=== PATIENT | male | born 1980 | race African-American/Black ===

== ENCOUNTER 2016-12-07 21:15 | Emergency (ER) | payer SELFPAY ==
[~2016-12-07] VITALS: Ht 182.9 cm; Wt 75.0 kg
[~2016-12-07 21:15] MED LIST: LORT5TAB PO; Z.0.NO CURRENT MEDS
[2016-12-07 21:17] VITALS: BP 126/84; PULSE 88; RESP 16; TEMP 98.6; O2SAT 99
--- NOTE | 2016-12-07 21:24 | PD ---
HPI Chief Complaint: ENT Complaint Time Seen by Provider: 21:23 Travel History International Travel<30 days: No Contact w/Intl Traveler<30days: No Traveled to known affect area: No History of Present Illness HPI 46-year-old male presents to emergency department for evaluation of painful left ear with associated edema. Patient states he noticed this this morning but he has had ear pain for the last few days. Denies any fever or chills. No injury. States his ear hearing is muffled in the left ear. States the pain is causing his migraines to exacerbate. He has no other symptoms to report. PFSH Past Medical History Medical History: Denies Significant Hx Past Surgical History Tonsillectomy: Yes Social History Alcohol Use: No Tobacco Use: Yes Substance Use: No Allergies-Medications (Allergen,Severity, Reaction): Coded Allergies: No Known Allergies (Verified , 12/07/16) Reported Meds & Prescriptions Reported Meds & Active Scripts Active Augmentin (Amoxicillin-Clavulanate) 875-125 Mg Tab 1 Tab PO BID 10 Days Ibuprofen 800 Mg Tab 800 Mg PO Q8H PRN Lortab 5/500 (Acetaminophen/Hydrocodone Bitart) 5 Mg/500 Mg Tab 1 Tab PO Q6HPRN Review of Systems Except as stated in HPI: all other systems reviewed are Neg Physical Exam Narrative GENERAL: Well-nourished, well-developed male patient in no acute distress SKIN: Focused skin assessment warm/dry. HEAD: Normocephalic. No mastoid tenderness or erythema EARS: Bilateral pinnae and right external canals appear within normal limits. I am unable to visualize left tympanic membrane due to significant edema of the external canal as well as associated purulent drainage. Right tympanic membranes without erythema, dullness or perforation. EYES: No scleral icterus. No injection or drainage. NECK: Supple, trachea midline. No JVD or lymphadenopathy. CARDIOVASCULAR: Regular rate and rhythm without murmurs, gallops, or rubs. RESPIRATORY: Breath sounds equal bilaterally. No accessory muscle use. Data Data Last Documented VS Vital Signs Date Time Temp Pulse Resp B/P (MAP) Pulse Ox O2 Delivery O2 Flow Rate FiO2 12/07/16 22:02 12/07/16 21:17 98.6 88 16 99 Room Air Orders Orders Ketorolac Inj (Toradol Inj) (12/07/16 21:30) Amoxicil-Clavulanate (Augmentin) (12/07/16 21:30) [facility] Medical Decision Making Medical Screen Exam Complete: Yes Emergency Medical Condition: Yes Medical Record Reviewed: Yes Differential Diagnosis Otitis externa versus otitis media versus cystic lesion versus abscess Narrative Course 46-year-old male presents to emergency department for evaluation left ear pain. I'm unable to visualize the tympanic membrane of the left ear due to significant edema in the canal. Patient will be started on oral antibiotics as well as drops. He is provided his first dose here. He is encouraged to follow- up with a primary care provider and return immediately with any acute worsening of symptoms. Diagnosis Primary Impression: Otitis externa of left ear Qualified Codes: H60.312 - Diffuse otitis externa, left ear Referrals: Primary Care Physician Patient Instructions: General Instructions, Otitis Externa (ED) Additional Instructions: Follow-up with a primary care provider Return immediately to the emergency department with any acute worsening of symptoms Med/Other Pt SpecificInfo: Prescription(s) given Scripts Amoxicillin-Clavulanate (Augmentin) 875-125 Mg Tab 1 TAB PO BID for Infection for 10 Days, #10 TAB 0 Refills Prov: Lizzette Chacon 12/07/16 Ibuprofen (Ibuprofen) 800 Mg Tab 800 MG PO Q8H Y for Pain/Inflammation, #30 TAB 0 Refills Prov: Lizzette Chacon 12/07/16 Disposition: 01 DISCHARGE HOME Condition: Stable Lizzette Chacon Dec 07, 2016 21:24
[2016-12-07] MEDS ORDERED: AMOXICILLIN/CLAVULANATE K 875 MG TAB PO ONE (21:30)
[2016-12-07] MEDS ORDERED: KETOROLAC TROMETHAMINE 60 MG/2 ML (IM) VIAL IM ONE (21:30)
[2016-12-07] MEDS ORDERED: CIPRHC10A LEFT EAR (21:33)
[2016-12-07] MEDS ORDERED: AUGM875T3 PO (21:33)
[2016-12-07] MEDS ORDERED: IBUP800T23 PO (21:33)
== END 2016-12-07 22:12 | disposition home or self-care (01) ==
LOC: EDTENT 21:15
DX: H60.312 Diffuse otitis externa, left ear (principal); Z72.0 Tobacco use
CPT/HCPCS: 96372; 99284; J1885